=== PATIENT | male | born 1955 | race Caucasian/White ===

== ENCOUNTER 2017-08-06 13:14 | Outpatient (CLI) | payer OTHER ==
--- NOTE | 2017-08-06 21:07 | MRI Report ---
EXAM: MRI CERVICAL SPINE WITHOUT CONTRAST EXAM DATE: 08/06/2017 01:30 PM. CLINICAL HISTORY: Radiculopathy, cervical region. COMPARISONS: 06/25/2016. TECHNIQUE: Multiplanar, multisequence T1-weighted and fluid-sensitive sequences of the cervical spine without contrast. Other: None. FINDINGS: Neurologic Structures: The visualized posterior fossa structures are unremarkable. Stable mild chroni c narrowing of the cord at C5-C6 with mild T2 hyperintensity, unchanged. Alignment: No scoliosis or spondylolisthesis. Bone Marrow: Again seen is C5-C6 anterior interbody fusion with local metallic artifact. Alignment no rmal. No fracture or marrow edema. No suspicious bony lesions. Interspace Levels/Facets: C1-C2: Mild anterior arthropathy. No stenosis. C2-C3: Left uncovertebral arthropathy with mild left foraminal stenosis, stable. C3-C4: Mild disk bulge. Lower normal limits central canal diameter. Moderate left facet arthropathy a nd left uncovertebral arthropathy with moderate left foraminal stenosis, stable. C4-C5: Moderate left facet arthropathy. Previous left laminoforaminotomy. No stenosis. C5-C6: This level has been fused. No central stenosis. Right uncovertebral arthropathy with mild righ t foraminal stenosis, stable. C6-C7: Mild disk bulge. No central stenosis. Mild bilateral facet and uncovertebral arthropathy with mild bilateral foraminal stenoses, stable. C7-T1: Unremarkable. Musculature: Normal. No edema or fatty atrophy. Other: The paravertebral and prevertebral soft tissues are normal. IMPRESSION: 1. Stable C5-C6 fusion. 2. Stable chronic mild myelomalacia at C5-C6 cord. 3. Multilevel foraminal stenoses, moderate at C3-C4, mild at right C5-C6, mild at bilateral C6-C7 is stable. [facility] Referring Provider Line: [phone] SITE ID: [id number]
== END 2017-08-06 13:15 | disposition home or self-care (01) ==
LOC: DI 13:14
PROVIDERS: ATTEND Family Medicine
DX: G95.89 Other specified diseases of spinal cord (principal); M47.892 Other spondylosis, cervical region; Z98.1 Arthrodesis status; M50.81 Other cervical disc disorders, high cervical region
CPT/HCPCS: 72141

== ENCOUNTER 2019-07-09 03:30 | Emergency (ER) | payer OTHER ==
[2019-07-09 03:52] LABS: BASOPHILS # (AUTO) 0.1 10^3/uL (0.0-0.1); BASOPHILS % (AUTO) 0.6 %; EOSINOPHILS # (AUTO) 0.2 10^3/uL (0.0-0.7); EOSINOPHILS % (AUTO) 1.8 %; HGB - HEMOGLOBIN 14.9 g/dL (14.0-18.0); LYMPHOCYTES # (AUTO) 3.6 10^3/uL (1.5-3.5); LYMPHOCYTES % (AUTO) 33.2 %; MEAN CORPUSCULAR HEMOGLOBIN 31.4 pg (27.0-31.0); MEAN CORPUSCULAR VOLUME 95.4 fL (80.0-94.0); MEAN PLATELET VOLUME 10.5 fL (7.4-11.4); MONOCYTES # (AUTO) 1.6 10^3/uL (0.0-1.0); MONOCYTES % (AUTO) 14.7 %; NEUTROPHILS # (AUTO) 5.3 10^3/uL (1.5-6.6); PLT - PLATELET COUNT 181 10^3/uL (130-450); RED BLOOD COUNT 4.74 10^6/uL (4.70-6.10); WHITE BLOOD COUNT 10.8 x10^3/uL (4.8-10.8)
[2019-07-09 04:02] LABS: ALBUMIN/GLOBULIN RATIO 1.3 (1.0-2.2); BILIRUBIN,TOTAL 0.9 mg/dL (0.2-1.0); CALCIUM 9.1 mg/dL (8.5-10.3); TOTAL PROTEIN 7.2 g/dL (6.7-8.2)
--- NOTE | 2019-07-09 04:02 | ED Physician Documentation ---
PD HPI CHEST PAIN - Stated complaint Stated Complaint: CP/HARD TO BREATHE/R ARM PAIN - Chief complaint Chief Complaint: Cardiac - History obtained from History obtained from: Patient - History of Present Illness Timing - onset: Enter time (02:00), Today Timing - onset during: Sleep Timing - details: Abrupt onset, Constant Pain level max: 8 Pain level now: 4 Quality: Pressure, Tightness Location: Other (across anterior chest) Radiation: Jaw, Neck, Right upper extremity Improved by: Nothing Worsened by: Other (no apparent exacerbating factors) Associated symptoms: No: Shortness of air, Diaphoresis, Nausea, Vomiting, General Weakness, Palpitations Similar symptoms before: Has not had sx before - Additional information Additional information: patient was woken from sleep at approximately 2 AM due to chest pain, tightness, "entire chest" (per patient; he points across his anterior chest), "like weight on my chest". pain radiated to RUE, right upper back, neck, and jaw. Symptoms waxed and waned without apparent exacerbating or ameliorating factors, but constant to varying severity since 2 AM. Pain has improved since ED arrival. Denies cardiac history, has never had this pain before. Review of Systems Constitutional: reports: Reviewed and negative Eyes: reports: Reviewed and negative Ears: reports: Reviewed and negative Nose: reports: Reviewed and negative Throat: reports: Reviewed and negative Cardiac: reports: Chest pain / pressure. denies: Palpitations, Pedal edema, Calf pain Respiratory: reports: Reviewed and negative GI: reports: Reviewed and negative : denies: Dysuria, Frequency Skin: reports: Reviewed and negative Musculoskeletal: reports: Joint pain (right shoulder, bilateral knees (chronic)) Neurologic: denies: Generalized weakness, Focal weakness, Numbness PD PAST MEDICAL HISTORY - Past Medical History Cardiovascular: High cholesterol Respiratory: Sleep apnea GI: GERD : Kidney stones Derm: Herpes zoster - Past Surgical History General: Colonoscopy - Present Medications Home Medications: Ambulatory Orders Medication Instructions Recorded Confirmed Acyclovir 400 mg PO DAILY PM 07/09/19 07/09/19 Atorvastatin [Lipitor] 40 mg PO DAILY 07/09/19 07/09/19 Celecoxib [CeleBREX] 200 mg PO DAILY 07/09/19 07/09/19 Oxycodone HCl/Acetaminophen 5 - 325 PO PRN 07/09/19 [Oxycodone-Acetaminophen 5-325] Tamsulosin [Flomax] 0.4 mg PO DAILY 07/09/19 07/09/19 traZODone [Desyrel] 100 mg PO HS 07/09/19 07/09/19 - Allergies Allergies/Adverse Reactions: Allergies Allergy/AdvReac Type Severity Reaction Status Date / Time No Known Drug Allergies Allergy Verified 01/02/13 09:52 - Social History Does the pt smoke?: No Smoking Status: Never smoker Does the pt drink ETOH?: No Does the pt have substance abuse?: No - Immunizations Immunizations are current?: No Immunizations: TDAP current <10years PD ED PE NORMAL - Vitals Vital signs reviewed: Yes - General General: Alert and oriented X 3, No acute distress, Well developed/nourished - HEENT HEENT: Moist mucous membranes - Neck Neck: Supple, no meningeal sign - Cardiac Cardiac: RRR, No murmur, No gallop, No rub - Respiratory Respiratory: No respiratory distress, Clear bilaterally - Abdomen Abdomen: Soft, Non tender, Non distended - Back Back: No spinal TTP - Derm Derm: Normal color, Warm and dry, No rash - Extremities Extremities: No edema - Neuro Neuro: Alert and oriented X 3 Results - Vitals Vitals: Vital Signs - 24 hr 07/09/19 07/09/19 07/09/19 03:34 05:00 05:07 Temperature 36.6 C Heart Rate 62 68 67 Respiratory 15 16 11 L Rate Blood Pressure 133/86 H 110/79 110/79 O2 Saturation 97 95 94 07/09/19 07/09/19 07/09/19 05:54 06:44 08:46 Temperature Heart Rate 69 64 73 Respiratory 14 14 18 Rate Blood Pressure 127/84 H 114/77 115/70 O2 Saturation 96 93 94 Oxygen O2 Source Room air - EKG (time done) No standard instances Rate: Rate (enter#) (65) Rhythm: NSR [place]: Normal Intervals: Normal [place], RBBB QRS: Normal Ischemia: Non specific changes (V2, V3 ) #2 Rate: Rate (enter#) (68) Rhythm: NSR [place]: Normal Intervals: Normal [place], RBBB Ischemia: Normal ST segments, Non specific changes (V2, V3) - Labs Labs: Laboratory Tests 07/09/19 07/09/19 07/09/19 03:45 03:45 03:45 WBC 10.8 RBC 4.74 Hgb 14.9 Hct 45.2 MCV 95.4 H MCH 31.4 H MCHC 33.0 RDW 12.0 Plt Count 181 MPV 10.5 Neut # (Auto) 5.3 Lymph # (Auto) 3.6 H [place] # (Auto) 1.6 H Eos # (Auto) 0.2 Baso # (Auto) 0.1 Absolute Nucleated RBC 0.00 Nucleated RBC % 0.0 PT INR D-Dimer Sodium 137 Potassium 3.6 Chloride 103 Carbon Dioxide 25 Anion Gap 9.0 BUN 18 Creatinine 1.0 Estimated GFR (MDRD) 76 L Glucose 120 H Calcium 9.1 Total Bilirubin 0.9 AST 24 ALT 28 Alkaline Phosphatase 59 Troponin I High Sens 17.6 Total Protein 7.2 Albumin 4.0 Globulin 3.2 Albumin/Globulin Ratio 1.3 Lipase 33 07/09/19 07/09/19 07/09/19 05:46 05:46 09:00 WBC RBC Hgb Hct MCV MCH MCHC RDW Plt Count MPV Neut # (Auto) Lymph # (Auto) [place] # (Auto) Eos # (Auto) Baso # (Auto) Absolute Nucleated RBC Nucleated RBC % PT 12.7 H INR 1.1 D-Dimer < 200.0 L Sodium Potassium Chloride Carbon Dioxide Anion Gap BUN Creatinine Estimated GFR (MDRD) Glucose Calcium Total Bilirubin AST ALT Alkaline Phosphatase Troponin I High Sens 133.3 H* Total Protein Albumin Globulin Albumin/Globulin Ratio Lipase - Rads (name of study) chest xray Radiology: Prelim report reviewed, See rad report PD MEDICAL DECISION MAKING - ED course Complexity details: reviewed results, re-evaluated patient, considered differential, d/w patient, d/w family ED course: After initial blood tests resulted (including first hsTni), patient had episode of increased chest pain to 8/10 and he appeared to be in significant painful discomfort. Given 4mg IV morphine and reported good relief with this. D-dimer ordered and resulted normal, but repeat high-sensitivity troponin resulted high (133.3, up from first result which was within normal range at 17.6). D/W Dr. Quiles (on-call cardiology at [facility]), recommends transfer to [facility] (hospitalist service) and recommends heparin and aspirin. I then discussed the case with Dr. Jeong (hospitalist at [facility]), accepts transfer to [facility]. Patient had subsequent mild increase in his pain and thus given 2mg IV morphine and 1" NTP to ACW Departure - Departure Disposition: 02 Transfer Acute Care Hosp Clinical Impression: NSTEMI (non-ST elevated myocardial infarction) Condition: Stable
--- NOTE | 2019-07-09 04:12 | XRAY Report ---
Reason: chest pressure w/ SOA Procedure Date: 07/09/2019 Accession Number: [id number] / [id number] Procedure: XR - Chest 1 View X-Ray CPT Code: 47422 Final Report FULL RESULT: EXAM: CHEST RADIOGRAPHY EXAM DATE: 07/09/2019 03:59 AM. CLINICAL HISTORY: Chest pressure w/ shortness of breath. COMPARISON: 03/17/2015 11:17 AM. TECHNIQUE: 1 view. FINDINGS: Lungs/Pleura: Pulmonary vascular congestion. No alveolar consolidation or pleural effusion seen. No pneumothorax. Mediastinum: Within exam limitations, heart is mildly enlarged. Other: Metal plate and screws in the right clavicle. Metal plate and screws in the right seventh rib. IMPRESSION: 1. Mild cardiomegaly and pulmonary vascular congestion. [facility]
[2019-07-09] MEDS ORDERED: MORPHINE 2 MG/ML CARPUJECT IVP STA ×2 (05:44→09:04)
[2019-07-09] MEDS ORDERED: HEPARIN 5,000 UNIT/ML VIAL IVP STA (08:07)
[2019-07-09] MEDS ORDERED: HEPARIN 25000UNITS/500ML (D5W) 25,000 UNIT/500 ML BAG IV STA (08:07)
[2019-07-09] MEDS ORDERED: ASPIRIN CHEW 81 MG TABLET PO STA (08:08)
[2019-07-09] MEDS ORDERED: NITROGLYCERIN 2% PASTE TOP STA (09:04)
[2019-07-09 10:14] VITALS: BP 117/76
[2019-07-09 10:26] LABS: INR 1.1 (0.8-1.2); PT - PROTHROMBIN TIME 12.8 secs (9.9-12.6)
== END 2019-07-09 10:33 | disposition short-term general hospital (02) ==
LOC: ED 03:30
DX: I21.4 Non-ST elevation (NSTEMI) myocardial infarction (principal); I45.10 Unspecified right bundle-branch block
CPT/HCPCS: 36415; 71045; 80053; 83690; 84484; 85025; 85379; 85610; 85730; 93005; 96374; 96375; 96376; 99285; A9270

== ENCOUNTER 2019-07-09 10:35 | Outpatient (CLI) | payer OTHER | END 2019-07-09 10:36 | disposition short-term general hospital (02) | LOC: EMS 10:35 | PROVIDERS: ATTEND Surgery | DX: I21.4 Non-ST elevation (NSTEMI) myocardial infarction (principal) | CPT/HCPCS: A0425; A0426 ==